=== PATIENT | female | born 1990 | race Caucasian/White ===

== ENCOUNTER → 2016-11-15 | Outpatient (CLI) | payer OTHER | END | disposition home or self-care (01) | LOC: C.LAB1850 12:47 | PROVIDERS: ATTEND Physician Assistant | DX: Z11.3 Encounter for screening for infections with a predominantly sexual mode of transmission (principal) ==

== ENCOUNTER → 2017-04-13 | Outpatient (CLI) | payer OTHER | END | disposition home or self-care (01) | LOC: C.PAPS 16:29 | PROVIDERS: ATTEND Physician Assistant | DX: Z12.4 Encounter for screening for malignant neoplasm of cervix (principal) ==

== ENCOUNTER → 2017-04-13 | Outpatient (CLI) | payer OTHER | END | disposition home or self-care (01) | LOC: C.LABSPEC 15:38 | PROVIDERS: ATTEND Physician Assistant | DX: Z01.419 Encounter for gynecological examination (general) (routine) without abnormal findings (principal) ==

== ENCOUNTER → 2017-04-21 | Outpatient (CLI) | payer OTHER ==
[2017-04-21 13:49] LABS: HEP C IGG 13 YRS+OLDER_RFLX NEG (NEG)
== END | disposition home or self-care (01) ==
LOC: C.LAB1850 11:42
PROVIDERS: ATTEND Physician Assistant
DX: Z11.3 Encounter for screening for infections with a predominantly sexual mode of transmission (principal)

== ENCOUNTER → 2017-05-08 | Outpatient (CLI) | payer OTHER | END | disposition home or self-care (01) | LOC: C.LABSPEC 17:19 | PROVIDERS: ATTEND Physician Assistant | DX: A74.9 Chlamydial infection, unspecified (principal) ==

== ENCOUNTER → 2017-07-25 | Outpatient (CLI) | payer OTHER | END | disposition home or self-care (01) | LOC: C.LABSPEC 17:17 | PROVIDERS: ATTEND Physician Assistant | DX: A74.9 Chlamydial infection, unspecified (principal) ==

== ENCOUNTER 2021-08-26 05:29 | Inpatient (IN) ==
--- NOTE | 2021-08-23 13:18 | Anesthesiology Consultation ---
Date of Service August 23, 2021 Assessment & Plan (1) Encounter for pre-operative examination: - COVID screening: Per assessment on 08/23: No known COVID-19 positive contacts or current COVID-19 related symptoms. Travel screen negative. Patient vaccinated. Surgeon arranging preop COVID testing. Awaiting results. - Anti-Prosperity antibody: titers been closely monitored throughout . 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 Pt has produced antibodies against this and be monitored throughout the related to this. Pt will deliver at 36.5 weeks and receive 2 steroid shots for baby lung development (first short 08/23/21 PM, second shot 08/24/21). Per Esvin at blood bank, they are aware. 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 History Surgery Operation Date: 08/26/21 08:50 Proposed Procedures p Section (Delivery of Baby Through Abdominal Incision) - Tiffany Fuentes DO Height/Weight Height: 5 ft 6 in Weight: 90.718 kg Allergies Allergy/AdvReac Type Severity Reaction Status Date / Time scallops Allergy Mild SHOWN PER Verified 08/23/21 12:33 ALLERGY TEST dog dander Allergy Unknown ITCHY Verified 08/23/21 12:33 EYES, SNEEZING house dust mite Allergy Unknown ITCHY Verified 08/23/21 12:33 EYES, SNEEZING No Known Drug Allergies Allergy Verified 08/23/21 12:33 milk AdvReac Mild MILD GI Verified 08/23/21 12:33 DISTURBANCE environmental Allergy Unknown ITCHY Uncoded 08/23/21 12:33 EYES, SNEEZING Medications Home Medications Medication Instructions Recorded Confirmed Last Taken Steroid Injection 1 dose UD PRN 08/23/21 08/23/21 Unknown loratadine 10 mg tablet (Claritin) 10 mg PO QAM 08/23/21 08/23/21 Unknown prenat.vits,mark,ibr-tvxo-lfebf 1 tab PO QAM 08/23/21 08/23/21 Unknown Past Medical History Medical History (Updated 08/23/21 @ 13:15 by Mallorie Morales) ADHD No current meds 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 Pt has produced antibodies against this and be monitored throughout the related to this. Pt will deliver at 36.5 weeks and receive 2 steroid shots for baby lung development (first short 08/23/21 PM, second shot 08/24/21) Past Family History Family History Grandmother Colorectal cancer Father No problems noted. Family/Other Myocardial infarction Environmental allergies Sinusitis Mother Hypothyroidism Grandmother (Paternal) Lung cancer Sister Ovarian cancer Denies family history of Breast cancer Uterine cancer Past Surgical History Surgical History (Updated 08/23/21 @ 13:11 by Mallorie Morales) H/O nasal septoplasty S/P section S/P tooth extraction wisdom teeth Social History Smoking Status: Former smoker tobacco type: cigarettes Do You Dip or Chew Tobacco: No Smoking End Date: 8-9 YR AGO Hx Alcohol Use: No Hx Substance Use: No substance use type: does not use
--- NOTE | 2021-08-25 17:49 | History & Physical Report ---
Date of Service August 25, 2021 Assessment & Plan (1) Previous delivery affecting , antepartum: Plan: Plan for repeat section, revision of skin incision. Does NOT plan for tubal at this time (is planning partner vasectomy). Reviewed consent in detail. Questions answered. She would like this to go through prior pfannenstiel incision, with revision of the vertical portion of incision. We discussed that will try to do this during the surgery, and will use yunior. Discussed that there is a possibility that this will not heal well again and that she might keloid again. She understands. Discussed that there is risk of scarring that might cause difficulty with delivery of baby and possibly increased risk of damage to internal organs. She would like to keep the placenta - will defer to hospital policies regarding this History of Present Illness Chief Complaint: scheduled repeat section Primary Care Provider: [facility] PCP 31yo with [facility] 09/20/21. Scheduled for repeat section. with the following: COVID positive PCR on 05/07 (s/s started on 05/06) Prior Section affecting *I spoke with Dr. Escobar today in labor and delivery we carefully reviewed the case she recalled that the uterus was definitely not cut in a T-incision we reviewed the note carefully together and she said she did make a vertical incision on the skin but there was no vertical incision on the uterus that the nipple laceration was done simply because the baby's arm was out and she had to get more room on the abdomen and this is where the incision was made - DR. Jean *Repeat C/S *Delivery 36-37 weeks C/S WITH LIA ON 08/26/21 COVID TEST ON 08/24/21 Short interval within 1 year. Anti K antibody *Fob K antigen positive *MFM consult *titer Q 2 wks (per MFM conversation on 04/13/21) GBS positive in urine *Treat in labor Allergies Allergy/AdvReac Type Severity Reaction Status Date / Time scallops Allergy Mild SHOWN PER Verified 08/25/21 15:58 ALLERGY TEST dog dander Allergy Unknown ITCHY Verified 08/25/21 15:58 EYES, SNEEZING house dust mite Allergy Unknown ITCHY Verified 08/25/21 15:58 EYES, SNEEZING No Known Drug Allergies Allergy Verified 08/25/21 15:58 milk AdvReac Mild MILD GI Verified 08/25/21 15:58 DISTURBANCE environmental Allergy Unknown ITCHY Uncoded 08/23/21 12:33 EYES, SNEEZING Home Medications Medication Instructions Recorded Confirmed Type Steroid Injection 1 dose UD PRN 08/23/21 08/25/21 History loratadine 10 mg tablet (Claritin) 10 mg PO QAM 08/23/21 08/25/21 History prenat.vits,mark,kyo-aqtk-tntpc 1 tab PO QAM 08/23/21 08/25/21 History Patient History Medical History (Updated 08/23/21 @ 13:15 by Mallorie Morales) ADHD No current meds 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 Pt has produced antibodies against this and be monitored throughout the related to this. Pt will deliver at 36.5 weeks and receive 2 steroid shots for baby lung development (first short 08/23/21 PM, second shot 08/24/21) Surgical History (Updated 08/23/21 @ 13:11 by Mallorie Morales) H/O nasal septoplasty S/P section S/P tooth extraction wisdom teeth Family History Grandmother Colorectal cancer Father No problems noted. 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 Beliefs That Will Affect Care: None marital status: marital status details: Arsenio Puente (39) [phone] Current Living Situation: Spouse and Family Current Living Situation Comment: lives with spouse, 2 children, dog, cat-spoue changing litter current occupational status: employed 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 No s/s chorio or abruption. Skin: no rashes, warm and dry Psychiatric: A+Ox3, euthymic affect Coding Level of Care Code None Diagnoses Previous delivery affecting , antepartum O34.219
[2021-08-26] MEDS ORDERED: LACTATED RINGER'S 1,000 ML IV SCH ×2 (05:45→06:45)
[2021-08-26] MEDS ORDERED: ceFAZolin 2000MG 2,000 MG/15 ML SYR IV SCH (06:00)
[2021-08-26] MEDS ORDERED: CITRIC ACID/SODIUM CITRATE 15 ML UDC PO SCH (06:00)
[2021-08-26 06:12] LABS: Hematocrit (blood only) 34.3 % (37-47); Hemoglobin 11.4 g/dL (12.0-16.0); Mean Corpuscular Hgb Conc 33.2 g/dL (32-36); Mean Corpuscular Volume 93.2 fL (80-100); Mean Platelet Volume 10.7 fL (7.4-10.4); Platelet Count 240 K/uL (130-400); RDW Coefficient of Variation 12.8 % (11.5-14.5); RDW Standard Deviation 43.4 fL (36.4-46.3); Red Blood Count 3.68 M/uL (4.2-5.4); White Blood Count 7.73 K/uL (4.8-10.8)
[2021-08-26 06:50] LABS: Basophils # (auto) 0.01 K/uL (0-0.2); Basophils % (auto) 0.1 %; Eosinophils # (auto) 0.05 K/uL (0-0.5); Eosinophils % (auto) 0.6 %; Immature Granulocytes # (auto) 0.03 K/uL (0.00-0.02); Immature Granulocytes % (auto) 0.4 %; Lymphocytes # (auto) 3.03 K/uL (1.2-3.4); Lymphocytes % (auto) 39.2 %; Monocytes # (auto) 0.81 K/uL (0.11-0.59); Monocytes % (auto) 10.5 %; Neutrophils % (auto) 49.2 %
[2021-08-26] MEDS ORDERED: MoRPHine SULFATE PF 1 MG/ML 10 ML AMP/VIAL ONE (06:57)
[2021-08-26] MEDS ORDERED: OXYTOCIN 10 UNITS/ML 10ML VIAL ONE (06:57)
[2021-08-26] MEDS ORDERED: fentaNYL citrate 100 MCG/2 ML VIAL ONE (06:57)
[2021-08-26] MEDS ORDERED: ONDANSETRON INJ 2 MG/ML 2 ML VIAL ONE (06:57)
--- NOTE | 2021-08-26 07:35 | History & Physical Bridge Note ---
Date of Service August 26, 2021 History & Physical Bridge Note I have examined the patient, reviewed the History & Physical and in the interval since the performance of the History & Physical I have noted the following changes of clinical significance: no changes noted
[2021-08-26] MEDS ORDERED: MoRPHine SULFATE PF 1 MG/ML 10 ML AMP/VIAL INT SPINAL ONE (07:59)
[2021-08-26] MEDS ORDERED: NALOXONE HCL 1 MG in SODIUM CHLORIDE 0.9% 1000ML 1,000 ML IV PRN (07:59)
[2021-08-26] MEDS ORDERED: LACTATED RINGER'S 500 ML IV PRN (07:59)
[2021-08-26] MEDS ORDERED: ONDANSETRON INJ 2 MG/ML 2 ML VIAL IV PRN ×2 (07:59→09:26)
[2021-08-26] MEDS ORDERED: MoRPHine SULFATE 2 MG/ML CARP IV PRN (07:59)
[2021-08-26] MEDS ORDERED: NALOXONE HCL 0.4 MG/1 ML VIAL/CARP IV PRN (07:59)
[2021-08-26] MEDS ORDERED: NALBUPHINE HCL INJ 10 MG/ML AMP IV PRN (07:59)
[2021-08-26] MEDS ORDERED: ePHEDrine sulfate 50 MG/ML AMP IV PRN (07:59)
[2021-08-26] MEDS ORDERED: diphenhydrAMINE 50 MG/ML VIAL IV PRN (07:59)
[2021-08-26] MEDS ORDERED: NALOXONE HCL 0.08 MG in SYRINGE 1.8 ML IV PRN (07:59)
[2021-08-26] MEDS ORDERED: NO NARCOTICS OR SEDATIVES SCH (08:00)
[2021-08-26] MEDS ORDERED: SODIUM CHLORIDE 0.9% 1000ML 1,000 ML IV SCH (08:00)
[2021-08-26] MEDS ORDERED: DC INTRASPINAL MORPHINE SCH (08:00)
[2021-08-26] MEDS ORDERED: ARISTA ABSORBABLE HEMOSTAT 3GM TOP ONE (08:45)
[2021-08-26] MEDS ORDERED: LIDOCAINE 2%/EPINEPHRINE 1:200,000 20 ML SDV ONE (08:47)
--- NOTE | 2021-08-26 09:10 | Operative Report ---
PG Post Operative Report Pre & Post Diagnosis Operation Date: 08/26/21 07:30 Pre-Op Diagnosis: Repeat Caesarean Section;Prior T Incision;Large Scar Post-Op Diagnosis: Same; Delivery of a live male child at 0807 I identified the patient and participated in the time-out.: Yes Procedure Operation Date: 08/26/21 07:30 Actual Procedures Repeat low transverse Section, Revision of prior Incision - Tiffany Fuentes DO Surgeon Tiffany Fuentes DO Fruit Or Nut Farmworker Jerald Veras MD Estimated Blood Loss 700 Findings Consistent with Post-Op Diagnosis Large T-shaped skin incision. Normal appearing uterus, tubes, ovaries. There is a defect in the right broad ligament, presumably from prior cervical extension. Viable male , Apgars 8/9. Specimens Patient desires to keep placenta - therefore she declines to send to path. Drains gómez clear yellow Anesthesia Type Spinal Complications none Disposition Accompanied Patient To Recovery: Yes Indications 31yo @ 36 3/7, with prior and difficult delivery of baby, with T-incision. Early delivery recommended by MFM due to suspected T-incision of uterus. Patient rec'd 2x betamethasone for lung maturity. Patient desired revision of prior skin incisions. Description of Procedure The patient was seen in her labor and delivery room, risks benefits and alternatives to surgery were reviewed. Informed consent obtained. Questions were answered. She was taken to the operating room, spinal anesthesia was administered. She was then prepared and draped in the usual sterile fashion in the supine position with a leftward tilt. Timeout was confirmed. A Pfannenstiel skin incision was made with a scalpel, removing the prior horizontal incision, and carried through to the underlying layer of fascia. Fascia was nicked at midline, and this incision was extended bilaterally. The superior aspect of the fascial incision was grasped with Marty clamps x2, elevated off the underlying rectus abdominis muscles, and dissected sharply and bluntly. In similar fashion, the inferior aspect of the fascial incision was dissected. The rectus abdominis muscles were , and the peritoneum was entered bluntly digitally. This was extended bilaterally. The bladder flap was taken down carefully using Metzenbaum scissors. Using a new scalpel, a low transverse uterine incision was created. Clear amniotic fluid noted. The infant was delivered from a cephalic presentation. The head delivered, followed by shoulders and body. Spontaneous cry on the field. The cord was doubly clamped and cut, and the was handed off to the waiting assemblyman or woman. A segment was retained for cord gases. Cord blood was obtained. The placenta was delivered spontaneously intact. The uterus was exteriorized, and cleared of all clots and debris. The hysterotomy incision was reapproximated using 0 Vicryl in a running locked stitch. A [id number]-tx-[id number] was used at the right apex due to small subserosal hematoma, this was stable after the figure of eight stitch. A second layer of the same suture was used to imbricate the incision. Posterior uterus was evaluated and normal. The uterus was returned to the abdomen, and gutters were cleared of clots and debris. Excellent hemostasis was observed. The fascial incision was reapproximated using 0 Vicryl in a running stitch. The vertical skin scar was removed with an elliptical incision with a scalpel, and all subcutaneous tissue was reapproximated using 2-0 plain gut in running stitches. The skin was reapproximated using yunior and covered with a bandage. The patient tolerated the procedure well, and will be taken to the recovery area in stable and good condition. I attest to the content of the Intraoperative Record and any orders documented therein. Any exceptions are noted below. OB Procedure Charges 11716
[2021-08-26] MEDS ORDERED: BENZOCAINE 20% AER SPR 82.5 GM CAN EXT PRN (09:26)
[2021-08-26] MEDS ORDERED: HYDROCORTISONE ACETATE 25 MG SUPP PR PRN (09:26)
[2021-08-26] MEDS ORDERED: diphenhydrAMINE Capsule 25 MG CAP PO PRN (09:26)
[2021-08-26] MEDS ORDERED: DIPHTHERIA/TETANUS/PERTUSSIS 0.5 ML SYR/VIAL IM ONE (09:26)
[2021-08-26] MEDS ORDERED: ACETAMINOPHEN 325 MG TAB PO PRN (09:26)
[2021-08-26] MEDS ORDERED: MAGNESIUM HYDROXIDE SUSP 30 ML UDC PO PRN (09:26)
[2021-08-26 09:35] LABS: Base Excess Cord Arterial Bld -1.8 mEq/L (-9-1.8); CO2 Cord Arterial Blood 47 mmHg (39.1-73.5); HCO3 Cord Arterial Blood 24 mmol/L (19.7-28.5); PO2 Cord Arterial Blood 19 mmHg (4.1-31.7); pH Cord Arterial Blood 7.33 (7.1-7.38)
[2021-08-26 09:47] LABS: Base Excess Cord Venous Blood -0.6 mEq/L (-7.7-1.9); Cord Venous Blood HCO3 24 mmol/L (18.4-26.8); Cord Venous Blood PCO2 37 mmHg (30.4-57.2); Cord Venous Blood PO2 34 mmHg (14.1-43.3); Cord Venous Blood pH 7.42 (7.20-7.44); Oxygen Sat Cord Arterial Blood < 60.0 % (<60)
[2021-08-26] MEDS: KETOROLAC 30 MG/ML VIAL IV PRN ×2 (09:55→15:29)
[2021-08-26] MEDS ORDERED: OXYTOCIN 20 UNITS in LACTATED RINGER'S 1,000 ML IV SCH ×2 (10:15→17:15)
--- NOTE | 2021-08-26 11:34 | Anesthesia Procedure Note ---
Date of Service August 26, 2021 Anesthesia Post Epidural Note Vital Signs Vital Signs: Temp Pulse Resp BP Pulse Ox 36.8 C 63 18 114/65 100 08/26/21 05:40 08/26/21 10:20 08/26/21 05:40 08/26/21 10:20 08/26/21 10:17 Pain Intensity Lower Abdomen: Pain Intensity: 4 Notes Mental Status: alert / awake / arousable and participated in evaluation Patient Amnestic to Procedure: No Nausea / Vomiting: adequately controlled Pain: adequately controlled Airway Patency, RR, SpO2: stable & adequate BP & HR: stable & adequate Hydration State: stable & adequate Neuraxial Anesthesia: was administered and sensory block is resolving Anesthetic Complications: no major complications apparent and Pt Satisfied with anesthetic care
[2021-08-26] MEDS: SIMETHICONE 80 MG CHEW PO SCH ×3 (13:19→20:53)
[2021-08-26] MEDS: IBUPROFEN 600 MG TAB PO PRN (20:53)
[2021-08-26] MEDS: DOCUSATE SODIUM 100 MG CAP PO SCH (20:54)
[2021-08-27] MEDS ORDERED: PROMETHAZINE HCL 25 MG in SODIUM CHLORIDE 0.9% 50 ML IV PRN (02:00)
[2021-08-27] MEDS: IBUPROFEN 600 MG TAB PO PRN ×5 (04:49→23:35)
[2021-08-27] MEDS: oxyCODONE/ACETAMINOPHEN 5mg/325mg TAB PO PRN ×5 (04:50→23:34)
--- NOTE | 2021-08-27 06:57 | Obstetrical Progress Note ---
Date of Service August 27, 2021 Assessment & Plan (1) Supervision of normal intrauterine in multigravida: POD#1 doing well. Incision clean/dry/intact. Ambulating, eating/drinking. Urinating normally. Passing gas. . Pain controlled. Abdomen soft/NTTP/nondistended. Bandage removed - yunior in place. Recommend ambulation, PO hydration today. Subjective Ambulation: ambulating normally Voiding: no voiding problems Diet Tolerance:: regular diet Lochia:: Moderate Review of Systems All systems reviewed & are unremarkable except as noted in HPI & below Physical Exam Constitutional WD/WN, vitals as above no acute distress Respiratory normal respiratory effort Cardiovascular Rate/Rhythm: regular rate and regular rhythm Gastrointestinal (Abdomen) Inspection/Auscultation: abdomen normal to inspection; abdomen not distended Percussion/Palpation: abdomen soft Genitourinary OB Exam Abdomen: + fundal height Fundus: + firm; not tender Results & Data ([facility]) Vital Signs (Past 12 Hours) Vital Signs Temp Pulse Resp BP Pulse Ox 08/27/21 03:00 36.7 C 72 18 98/60 L 94 08/27/21 02:00 18 93 08/27/21 01:23 18 95 08/27/21 00:50 18 95 08/26/21 23:40 36.9 C 81 18 117/60 95 08/26/21 22:00 16 93 08/26/21 21:00 16 95 08/26/21 20:08 36.9 C 91 H 16 109/65 97 08/26/21 19:00 16 98
[2021-08-27 07:00] LABS: Basophils # (auto) 0.01 K/uL (0-0.2); Basophils % (auto) 0.1 %; Eosinophils # (auto) 0.19 K/uL (0-0.5); Eosinophils % (auto) 1.8 %; Hematocrit (blood only) 34.4 % (37-47); Immature Granulocytes # (auto) 0.05 K/uL (0.00-0.02); Immature Granulocytes % (auto) 0.5 %; Lymphocytes # (auto) 2.42 K/uL (1.2-3.4); Lymphocytes % (auto) 22.5 %; Mean Corpuscular Hemoglobin 32.8 pg (25-34); Mean Corpuscular Hgb Conc 34.9 g/dL (32-36); Mean Platelet Volume 10.8 fL (7.4-10.4); Monocytes # (auto) 0.99 K/uL (0.11-0.59); Monocytes % (auto) 9.2 %; Neutrophils % (auto) 65.9 %; Platelet Count 234 K/uL (130-400); RDW Coefficient of Variation 12.7 % (11.5-14.5); RDW Standard Deviation 43.3 fL (36.4-46.3); Red Blood Count 3.66 M/uL (4.2-5.4); White Blood Count 10.76 K/uL (4.8-10.8)
[2021-08-27] MEDS: PRENATAL VITAMIN 1 TAB PO SCH (07:42)
[2021-08-27] MEDS: FERROUS SULFATE 325 MG TAB PO SCH (07:42)
[2021-08-27] MEDS: DOCUSATE SODIUM 100 MG CAP PO SCH ×2 (07:43→19:42)
[2021-08-27] MEDS: SIMETHICONE 80 MG CHEW PO SCH ×4 (07:43→19:42)
[2021-08-27] MEDS ORDERED: bisacodyL 5 MG TABEC PO SCH (20:00)
[2021-08-28] MEDS: oxyCODONE/ACETAMINOPHEN 5mg/325mg TAB PO PRN ×2 (05:22→09:59)
[2021-08-28] MEDS: IBUPROFEN 600 MG TAB PO PRN ×2 (05:23→09:57)
[2021-08-28 06:53] LABS: Hematocrit (blood only) 34.5 % (37-47); Hemoglobin 11.3 g/dL (12.0-16.0)
--- NOTE | 2021-08-28 07:18 | Obstetrical Progress Note ---
Date of Service August 28, 2021 Assessment & Plan (1) Supervision of normal intrauterine in multigravida: Postoperative day #2 from section she wishes to go home and this is reasonable incision is healing well she will need yunior out in the office and appointment will be made for her next week Subjective Ambulation: ambulating normally Voiding: no voiding problems Passing Gas:: Yes Diet Tolerance:: regular diet Lochia:: Small Results & Data ([facility]) Vital Signs (Past 12 Hours) Vital Signs Temp Pulse Resp BP Pulse Ox 08/27/21 23:30 97.5 F L 67 17 109/67 97 08/27/21 19:45 97.7 F 73 16 120/69 98
[2021-08-28] MEDS ORDERED: bisacodyL 10 MG SUPP PR PRN (09:16)
[2021-08-28] MEDS: SIMETHICONE 80 MG CHEW PO SCH (09:51)
[2021-08-28] MEDS: FERROUS SULFATE 325 MG TAB PO SCH (09:52)
[2021-08-28] MEDS: PRENATAL VITAMIN 1 TAB PO SCH (09:52)
[2021-08-28] MEDS: DOCUSATE SODIUM 100 MG CAP PO SCH (09:52)
== END 2021-08-28 11:30 | disposition home or self-care (01) | DRG 788 ==
LOC: 4S1 05:29 → EDSTATUS 08:50 → 4E2 11:00

== ENCOUNTER 2024-01-24 07:30 | Inpatient (IN) ==
--- NOTE | 2024-01-31 15:30 | Anesthesiology Consultation ---
Date of Service January 31, 2024 Assessment & Plan (1) Encounter for pre-operative examination: Chart Review Chart Review: Acceptable Risk for Surgery and Patient NOT seen in Pre Admission Testing Infectious Disease screening: Per PAT nursing assessment on 01/31/24, No known infectious disease contacts in past 10 days or current infectious disease symptoms. No recent travel outside the country. History Surgery Operation Date: 02/07/24 07:30 Proposed Procedures p Section (Delivery of Baby Through Abdominal Incision) - Belkis Jean MD, FACOG s With Bilateral Tubal Ligation - Belkis Jean MD, FACOG Height/Weight Height: 5 ft 6 in Weight: 86.183 kg Allergies Allergy/AdvReac Type Severity Reaction Status Date / Time nickel Allergy Rash Verified 01/31/24 13:36 No Known Drug Allergies Allergy Verified 01/31/24 13:26 Medications Home Medications Medication Instructions Recorded Confirmed Last Taken prenat.vits,mark,pap-nxzq-yconf 1 tab PO QAM 08/23/21 01/31/24 Unknown Dha 1 cap PO QAM 01/31/24 01/31/24 Unknown Past Medical History Medical History (Updated 01/31/24 @ 15:28 by Melaine Herbert PA-C) ADHD No current meds Anxiety Genetic carrier FOB is a [place] Gene carrier; per OB records, pt 'negative for [place] antigen' History of anemia no recent issues History of chicken pox History of COVID-19 mid 12/2023, tested positive, pt had similar symptoms; still has lingering cough Past Family History Family History Grandmother Colorectal cancer maternal great grandmother Father No problems noted. Family/Other Myocardial infarction Environmental allergies Sinusitis Mother Hypothyroidism Grandmother (Paternal) Lung cancer Sister Ovarian cancer, Onset Age: 34 negative genetic screen Denies family history of Breast cancer Uterine cancer Past Surgical History Surgical History (Updated 01/31/24 @ 15:27 by Melanie Herbert PA-C) H/O nasal septoplasty S/P section x2; most recent 08/26/21: SAB x 1 attempt 'easy' S/P tooth extraction wisdom teeth Social History Smoking Status: Former smoker tobacco type: cigarettes Do You Dip or Chew Tobacco: No Smoking End Date: 2013 Hx Alcohol Use: Yes alcohol intake frequency: holidays/special occasions only Hx Substance Use: No substance use type: does not use
[2024-02-07] MEDS ORDERED: OXYTOCIN 30 UNITS/NSS 30 UNITS/500 ML BAG IV PRN (05:55)
[2024-02-07] MEDS ORDERED: LIDOCAINE 1% LOCAL 20 ML VIAL INFIL PRN (05:55)
[2024-02-07] MEDS ORDERED: LACTATED RINGER'S 1,000 ML IV SCH ×2 (06:00→09:04)
[2024-02-07] MEDS ORDERED: CITRIC ACID/SODIUM CITRATE 15 ML UDC PO SCH (06:00)
[2024-02-07] MEDS ORDERED: ACETAMINOPHEN 500 MG TAB PO SCH (06:00)
[2024-02-07] MEDS: ACETAMINOPHEN 500 MG TAB PO SCH ×2 (06:02→06:53)
[2024-02-07 06:34] LABS: Hematocrit (blood only) 32.3 % (37.0-47.0); Hemoglobin 11.1 g/dl (12.0-16.0); Mean Corpuscular Hemoglobin 31.7 pg (25.0-34.0); Mean Corpuscular Hgb Conc 34.4 g/dL (32.0-36.0); Mean Corpuscular Volume 92.3 fL (80.0-100.0); Mean Platelet Volume 11.7 fL (9.4-12.4); Platelet Count 212 K/uL (130-400); RDW Coefficient of Variation 12.1 % (11.5-14.5); RDW Standard Deviation 40.9 fL (36.4-46.3); White Blood Count 8.49 K/ul (4.8-10.8)
[2024-02-07] MEDS: LACTATED RINGER'S 1,000 ML IV SCH (06:55)
[2024-02-07] MEDS ORDERED: MoRPHine SULFATE PF 1 MG/ML 10 ML AMP/VIAL ONE (06:57)
--- NOTE | 2024-02-07 07:12 | History & Physical Report ---
Date of Service February 07, 2024 Assessment & Plan (1) Previous delivery affecting , antepartum: Plan: Repeat section. With bilateral tubal ligation. The patient was counseled to the nature of the procedure including alternatives such as labor. Risks were discussed including bleeding infection injury to bowel bladder ureter vessels and even baby. The risks of internal organ injury were discussed as being higher with prior sections. Deep Vein Thrombosis, pulmonary embolus and breakdown of the incision discussed. Deep vein thrombosis pulmonary embolus hernia and failure of the incision to heal were discussed Patient verbalized understanding of this and was given ample time to ask questions Discussed the timing of 38 or 39 weeks. She strongly prefers 38 weeks due to rapid labors and potential rupture risk. Discussed slight risks of prematurity balanced with risks of waiting 1 more week. Wishes BTL Note we had a lengthy discussion about timing of delivery it does not appear from the original operative note from a different provider at a different hospital that there was true clarity on the T-incision. It sounds like a complicated delivery with possibly the skin was cut in the T-incision but not the uterus but the documentation is unclear. It had been discussed and her high risk group that we could offer a later delivery at 39 weeks and that we could also plan on 38 weeks. Going earlier such as 3637 weeks was advised against by our group at high risk meeting due to the risks of prematurity. Patient has had a prior early her biggest anxiety is that she went rapidly into labor and one of her prior pregnancies and the was challenging as she was progressing quickly she worries the same will happen if she waits 1 more week again I offered to schedule the section at 39 weeks the patient strongly wishes to pursue 38 weeks which is today and understands the risks and benefits including slight prematurity risks Admission and Anticipated Discharge Date Admission Date: February 07, 2024 History of Present Illness Primary Care Provider: Lizbeth Pike MD STACI Calculator Estimated Delivery Date Method Current WG Current Estimate 02/21/24 LMP (Certain) 37w 6d Other Estimates 02/20/24 Ultrasound #1 38w 0d LMP: 05/17/23 : 4 Full term: 3 Premature: 0 Total Number of Induced Abortions: 0 Total Number of Spontaneous Abortions: 0 Ectopics: 0 Multiple births: 0 Number of Living Children: 3 and Delivery Plans Prior x2, no known hx T incision - Repeat at 38- 39wks--desires TL C/S SCHEDULED 02/07/[address] CALDERON AND DR[address] BLAIR BHAKTA AMA Weekly NST's @ 36 weeks FOB Anne Gene Carrier *Ok for unity testing---negative for Alpine antigen Allergies Allergy/AdvReac Type Severity Reaction Status Date / Time nickel Allergy Rash Verified 02/06/24 08:36 No Known Drug Allergies Allergy Verified 02/06/24 08:36 Home Medications Medication Instructions Recorded Confirmed Type prenat.vits,mark,ptb-dplo-kmtix 1 tab PO QAM 08/23/21 02/07/24 History Dha 1 cap PO QAM 01/31/24 02/07/24 History Patient History Medical History History of COVID-19 mid 12/2023, tested positive, pt had similar symptoms; still has lingering cough Anxiety History of anemia no recent issues History of chicken pox Genetic carrier FOB is a [place] Gene carrier; per OB records, pt 'negative for [place] antigen' ADHD No current meds Surgical History S/P section x2; most recent 08/26/21: SAB x 1 attempt 'easy' H/O nasal septoplasty S/P tooth extraction wisdom teeth Family History Grandmother Colorectal cancer maternal great grandmother Father No problems noted. Family/Other Myocardial infarction Environmental allergies Sinusitis Mother Hypothyroidism Grandmother (Paternal) Lung cancer Sister Ovarian cancer, Onset Age: 34 negative genetic screen Denies family history of Breast cancer Uterine cancer Social History Smoking Status: Former smoker Tobacco Type: Cigarettes Smoking End Date: 2013; Second Hand Exposure: Yes (hx growing up); Do You Dip or Chew Tobacco: No; Tobacco Cessation Education Requested by Patient: No Hx Alcohol Use: Yes Hx Substance Use: No Preferred Language: Urdu Communication Ability: Effective Visual Impairment: No Limitations Hearing Ability: Normal 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 Beliefs That Will Affect Care: None marital status: marital status details: Arsenio Puente (41) [phone] Current Living Situation: Spouse and Family Current Living Situation Comment: lives with spouse, 3 children, dog, cat- spouse changing litter current occupational status: employed 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 Other Information That Helps Us Care for You: No Feels Safe at Home: Yes Safety Concerns: Feels Safe At This Time Diet: regular Dental Care, Regularly: Yes Physical Activity Frequency Comment: Reguarly Seatbelt Use: always Assistive Devices: None Physical Exam Constitutional: WD/WN, vitals as above well developed and well nourished Respiratory: normal respiratory effort, lungs clear to auscultation normal respiratory effort Cardiovascular: RRR, no murmur, no edema Gastrointestinal (Abdomen): normal bowel sounds, soft, nontender, no hepatosplenomegaly Results & Data Vital Signs (Past 12 Hours) Vital Signs Temp Pulse Resp BP 02/07/24 06:26 69 109/60 02/07/24 06:00 98.1 F 18 Code Status & VTE Plan VTE Prophylaxis Plan VTE Prophylaxis will be ordered: No Reason for no VTE drug order: Treatment not indicated Coding Level of Care Code None Diagnoses Previous delivery affecting , antepartum O34.219
[2024-02-07] MEDS: ceFAZolin 2,000 MG in SYRINGE 0 ML IV SCH (07:37)
[2024-02-07] MEDS: CITRIC ACID/SODIUM CITRATE 15 ML UDC PO SCH (07:37)
[2024-02-07] MEDS ORDERED: ONDANSETRON INJ 2 MG/ML 2 ML VIAL ONE (08:03)
[2024-02-07] MEDS ORDERED: METOCLOPRAMIDE HCL INJ 5 MG/ML 2 ML VIAL ONE (08:03)
[2024-02-07] MEDS ORDERED: DEXAMETHASONE SOD INJ 4 MG/ML VIAL ONE (08:06)
[2024-02-07] MEDS ORDERED: OXYTOCIN 10 UNITS/ML VIAL ONE (08:07)
[2024-02-07] MEDS ORDERED: PHENYLEPHRINE HCL 25 MG/250 ML NSS IV ONE (08:07)
[2024-02-07] MEDS ORDERED: ePHEDrine sulfate 50 MG/5 ML SYR ONE (08:07)
[2024-02-07] MEDS ORDERED: ONDANSETRON INJ 2 MG/ML 2 ML VIAL IV PRN (08:10)
[2024-02-07] MEDS ORDERED: ePHEDrine sulfate 50 MG/ML AMP IV PRN (08:10)
[2024-02-07] MEDS ORDERED: MoRPHine SULFATE PF 1 MG/ML 10 ML AMP/VIAL INT SPINAL ONE (08:10)
[2024-02-07] MEDS ORDERED: NALBUPHINE HCL INJ 10 MG/ML AMP IV PRN (08:10)
[2024-02-07] MEDS ORDERED: oxyCODONE HCL IR 5 MG TAB (IMMEDIATE RELEASE) PO PRN (08:10)
[2024-02-07] MEDS ORDERED: NALOXONE HCL 0.08 MG in SYRINGE 1.8 ML IV PRN (08:10)
[2024-02-07] MEDS ORDERED: NALOXONE HCL 0.4 MG/1 ML VIAL/CARP IV PRN (08:10)
[2024-02-07] MEDS ORDERED: diphenhydrAMINE 50 MG/ML VIAL IV PRN (08:10)
[2024-02-07] MEDS ORDERED: MoRPHine SULFATE 2 MG/ML CARP IV PRN (08:10)
[2024-02-07] MEDS ORDERED: NALOXONE HCL 1 MG in SODIUM CHLORIDE 0.9% 1,000 ML IV PRN (08:10)
[2024-02-07] MEDS ORDERED: PROMETHAZINE 6.25 MG/50.25 ML BAG IV PRN (08:10)
[2024-02-07] MEDS ORDERED: DC INTRASPINAL MORPHINE SCH (08:15)
[2024-02-07] MEDS ORDERED: NO NARCOTICS OR SEDATIVES SCH (08:15)
--- NOTE | 2024-02-07 08:58 | Operative Report ---
Post Operative Report Pre & Post Diagnosis Operation Date: 02/07/24 07:30 <No data on this case meets the specified criteria> Repeat section request for sterilization I identified the patient and participated in the time-out.: Yes Procedure Operation Date: 02/07/24 07:30 <No data on this case meets the specified criteria> Low transverse section and bilateral tubal ligation by salpingectomy Surgeon Belkis Jean MD, FACOG Vehicle Safety Inspector Dr. Goode Quantitative Blood Loss (QBL) 384 Findings Consistent with Post-Op Diagnosis Specimens bilateral fallopian tubes and cord blood Drains [place] Description of Procedure Regional anesthetic had been given by anesthesia patient was prepped and draped with a leftward tilt preoperative antibiotics had been given in appropriate timing by anesthesiology. Once the prep was allowed to fully dry timeout was performed. Pickups with teeth were used to test the incision area was found to be adequate for incision as the patient did not feel sharp pain. Scalpel was used to make a Pfannenstiel incision on the lower abdomen. We then cut through the subcutaneous fat down to the level of the anterior rectus sheath fascia this was cut in the midline and then extended laterally with the curved Garcia scissors. At this stage we then placed 2 Marty clamps on the anterior aspect of the fascia. Using the curved Garcia's we are able to dissect the fascia superiorly away from the rectus muscles. Care was taken to maintain hemostasis. Marty clamps were then placed to the inferior aspect of the anterior sheath of the fascia. Fascia was then dissected away from the rectus muscles inferiorly towards the pubic bone. A Marty was then placed in the midline both inferiorly and superiorly. This was to allow exposure by retraction rectus muscles were in the midline with were then able to cut through the peritoneum and then enter the peritoneal cavity. Opening was enlarged to allow exposure of the peritoneal cavity both superiorly and inferiorly. Once adequate space was obtained a bladder retractor was placed to expose the lower segment Metzenbaums were used to dissect the bladder flap inferiorly away from the uterus. This was done sharply bladder retractor was then repositioned to expose the lower segment of the uterus Fresh scalpel was used to make a low transverse incision on the uterus. Uterus was then entered bluntly with the operators finger, membranes ruptured and the opening was enlarged using the operators fingers bluntly pulling superiorly and inferiorly to allow exposure. Baby was delivered by first flexion of the head elevation of the head out of the pelvis and then pressure by the instructional assistant on the maternal abdomen. Baby's head was then delivered mouth and then nares were suctioned and then using gentle traction the baby was fully delivered. Live vigorous . Fluid was clear cord clamped and cut cord gases obtained cord blood obtained baby handed to pediatrics. Placenta removed was removed with traction we ensure the entire placenta was removed with a moist lap sponge into the uterus Uterus was then exteriorized. IV Pitocin had been started by anesthesia tone improved there were no extensions the uterus was then closed using 0 Monocryl in a 2 layer closure the first layer closed in a running locked fashion from left to right and then a second closure from left to right in a running nonlocked fashion. Patient had requested tubal ligation in the first the right tube was identified and elevated with a [place] using the LigaSure I was able to coagulate and cut the mesosalpinx attachments and then the tube was transected near the entry into the uterus hemostasis was excellent this exact same process was repeated on the left side. At this stage hemostasis was excellent. Uterus was placed back in the peritoneal cavity with suction irrigation out and inspection of the uterus at this stage revealed excellent hemostasis. There was a small lack of hemostasis noted on the right aspect of the incision a [id number] suture of 0 Monocryl improved hemostasis we also applied pro clot to the area at this stage hemostasis was excellent Retractors were removed urine color was clear at this stage of the case we inspected the rectus muscles they were hemostatic fascia was closed with 0 Vicryl subcutaneous fat was irrigated and closed with 3-0 Vicryl skin closed with 4-0 subcuticular Monocryl urine was clear at the end the procedure I attest to the content of the Intraoperative Record and any orders documented therein. Any exceptions are noted below. OB Procedure Charges [id number] Add on Tubal for C/S
[2024-02-07] MEDS ORDERED: HYDROCORTISONE ACETATE 25 MG SUPP PR PRN (09:04)
[2024-02-07] MEDS ORDERED: MAGNESIUM HYDROXIDE SUSP 30 ML UDC PO PRN (09:04)
[2024-02-07] MEDS ORDERED: diphenhydrAMINE Capsule 25 MG CAP PO PRN (09:04)
[2024-02-07] MEDS ORDERED: PROMETHAZINE 12.5 MG/50.5 ML BAG IV PRN (09:04)
[2024-02-07] MEDS ORDERED: BENZOCAINE 20% SPRY 85 APPLN/85 GM CAN EXT PRN (09:04)
[2024-02-07] MEDS ORDERED: CALCIUM CARBONATE 500 MG CHEWABLE TAB PO PRN (09:04)
[2024-02-07] MEDS ORDERED: SENNA 8.6 MG TAB PO PRN (09:04)
[2024-02-07] MEDS ORDERED: OXYTOCIN 20 UNITS/LR 1,000 ML IV SCH (09:04)
[2024-02-07] MEDS: KETOROLAC 30 MG/ML VIAL IV SCH (09:27)
[2024-02-07] MEDS: DIPHTHER/TETAN/PERTUS Vaccine (Tdap, Adol/Adult) 0.5mL IM ONE (12:20)
[2024-02-07] MEDS: OXYTOCIN 20 UNITS/LR 1,002 ML IV SCH (12:34)
--- NOTE | 2024-02-07 12:57 | Anesthesiology Progress Note ---
Date of Service February 07, 2024 Anesthesia Post Procedure Vital Signs Vital Signs: Temp Pulse Resp BP Pulse Ox 02/07/24 11:07 36.2 C L 20 02/07/24 11:07 61 103/53 L 02/07/24 11:06 85 81 L 02/07/24 11:04 77 100 02/07/24 10:59 71 95 02/07/24 10:57 71 99/51 L 02/07/24 10:54 67 99 02/07/24 10:53 79 93 02/07/24 10:49 75 98 02/07/24 10:47 65 103/55 L 02/07/24 10:44 68 99 02/07/24 10:39 73 98 02/07/24 10:37 20 02/07/24 10:37 71 106/56 L 02/07/24 10:34 65 99 02/07/24 10:33 78 94 02/07/24 10:29 68 99 02/07/24 10:27 73 101/55 L 02/07/24 10:24 69 98 02/07/24 10:19 72 96 02/07/24 10:18 70 93 02/07/24 10:17 66 103/57 L 02/07/24 10:14 69 98 02/07/24 10:09 77 100 02/07/24 10:07 20 02/07/24 10:07 76 107/58 L 02/07/24 10:04 78 100 02/07/24 09:59 70 100 02/07/24 09:57 20 02/07/24 09:57 65 111/60 02/07/24 09:54 80 99 02/07/24 09:49 62 100 02/07/24 09:47 20 02/07/24 09:47 66 100/52 L 02/07/24 09:44 73 99 02/07/24 09:39 81 100 02/07/24 09:38 97 H 112/56 L 02/07/24 09:37 20 02/07/24 09:34 62 98 02/07/24 09:29 65 98 02/07/24 09:27 20 02/07/24 09:27 76 103/55 L 02/07/24 09:24 69 99 02/07/24 09:19 75 98 02/07/24 09:17 20 02/07/24 09:17 77 110/57 L 02/07/24 09:14 71 100 02/07/24 09:09 66 100 02/07/24 09:07 36.3 C L 20 02/07/24 09:07 62 110/53 L 02/07/24 09:04 75 88 L 02/07/24 08:59 73 100 02/07/24 08:56 65 118/56 L 02/07/24 06:26 69 109/60 02/07/24 06:00 36.7 C 18 Transfer of Care Handoff Completed per policy Notes Mental Status: alert / awake / arousable Patient Amnestic to Procedure: Yes Nausea / Vomiting: adequately controlled Pain: adequately controlled Airway Patency, RR, SpO2: stable & adequate BP & HR: stable & adequate Hydration State: stable & adequate Neuraxial Anesthesia: was administered and sensory block is resolving Anesthetic Complications: no major complications apparent
[2024-02-07] MEDS: SIMETHICONE 80 MG CHEW PO SCH (14:05)
[2024-02-07] MEDS: ACETAMINOPHEN 325 MG TAB PO SCH (15:16)
[2024-02-07] MEDS: DOCUSATE SODIUM 100 MG CAP PO SCH (21:12)
[2024-02-08] MEDS ORDERED: diphenhydrAMINE 50 MG/ML VIAL IV PRN (02:11)
[2024-02-08] MEDS ORDERED: HYDROmorphone INJ 0.5 MG/0.5 ML SYR IV PRN (02:11)
[2024-02-08] MEDS ORDERED: ONDANSETRON INJ 2 MG/ML 2 ML VIAL IV PRN (02:11)
[2024-02-08 06:39] LABS: Basophils # (auto) 0.01 K/uL (0.00-0.20); Basophils % (auto) 0.1 %; Eosinophils # (auto) 0.06 K/uL (0.00-0.50); Eosinophils % (auto) 0.7 %; Hematocrit (blood only) 29.4 % (37.0-47.0); Immature Granulocytes # (auto) 0.02 K/uL (0.01-0.20); Immature Granulocytes % (auto) 0.2 %; Lymphocytes # (auto) 2.43 K/uL (1.20-3.40); Lymphocytes % (auto) 27.1 %; Mean Corpuscular Hemoglobin 31.9 pg (25.0-34.0); Mean Corpuscular Volume 93.9 fL (80.0-100.0); Mean Platelet Volume 11.5 fL (9.4-12.4); Monocytes # (auto) 0.64 K/uL (0.11-0.59); Monocytes % (auto) 7.1 %; Neutrophils % (auto) 64.8 %; Platelet Count 188 K/uL (130-400); RDW Coefficient of Variation 12.2 % (11.5-14.5); RDW Standard Deviation 41.9 fL (36.4-46.3); Red Blood Count 3.13 M/uL (4.20-5.40); White Blood Count 8.96 K/ul (4.8-10.8)
--- NOTE | 2024-02-08 07:15 | Obstetrical Progress Note ---
Date of Service February 08, 2024 Assessment & Plan (1) Previous delivery affecting , antepartum: Postoperative day note #1 from routine care and hemoglobin stable patient stable continue current care Subjective Ambulation: ambulating normally Voiding: no voiding problems Passing Gas:: Yes Diet Tolerance:: regular diet Lochia:: Small Physical Exam Constitutional WD/WN, vitals as above well developed and well nourished Respiratory normal respiratory effort, lungs clear to auscultation normal respiratory effort Cardiovascular RRR, no murmur, no edema Gastrointestinal (Abdomen) normal bowel sounds, soft, nontender, no hepatosplenomegaly Results & Data Vital Signs (Past 12 Hours) Vital Signs Temp Pulse Resp BP Pulse Ox O2 Del Method 02/08/24 03:25 97.5 F L 64 18 99/61 L 99 Room Air 02/08/24 00:00 97.9 F 84 16 96/56 L 99 Room Air 02/07/24 19:30 97.7 F 66 16 112/74 99 Room Air
[2024-02-08] MEDS: PRENATAL VITAMIN 1 TAB PO SCH (08:16)
[2024-02-08] MEDS: FERROUS SULFATE 325 MG TAB PO SCH (08:16)
[2024-02-08] MEDS: IBUPROFEN 600 MG TAB PO SCH (08:43)
[2024-02-08] MEDS ORDERED: KETOROLAC 30 MG/ML VIAL IV PRN (08:51)
[2024-02-08] MEDS: oxyCODONE HCL IR 5 MG TAB (IMMEDIATE RELEASE) PO PRN (11:30)
[2024-02-08 19:18] VITALS: RESP 16
[2024-02-08] MEDS: bisacodyL 5 MG TABEC PO SCH (19:45)
[2024-02-09 06:58] LABS: Hematocrit (blood only) 31.7 % (37.0-47.0); Hemoglobin 10.2 g/dl (12.0-16.0)
--- NOTE | 2024-02-09 07:55 | Obstetrical Progress Note ---
Date of Service February 09, 2024 Assessment & Plan (1) Elderly multigravida: POD#2 doing well. Incision CDI, abdomen soft. DC home today, reviewed instructions. Followup 6w PP in office. Rx Oxycodone sent to [facility]. Subjective Ambulation: ambulating normally Voiding: no voiding problems Diet Tolerance:: regular diet Lochia:: Moderate Review of Systems All systems reviewed & are unremarkable except as noted in HPI & below Physical Exam Constitutional WD/WN, vitals as above no acute distress Respiratory normal respiratory effort Cardiovascular Rate/Rhythm: regular rate and regular rhythm Gastrointestinal (Abdomen) Inspection/Auscultation: abdomen normal to inspection; abdomen not distended Percussion/Palpation: abdomen soft Genitourinary OB Exam Abdomen: + fundal height Fundus: + firm; not tender Results & Data Vital Signs (Past 12 Hours) Vital Signs Temp Pulse Resp BP Pulse Ox O2 Del Method 02/09/24 02:59 36.5 C 88 16 113/72 99 Room Air 02/08/24 23:35 36.3 C L 64 16 104/64 98 Room Air
[2024-02-09 08:20] VITALS: BP 101/66; TEMP 97.3; O2SAT 100
[2024-02-09] MEDS ORDERED: bisacodyL 10 MG SUPP PR PRN (08:51)
[2024-02-09] MEDS: IBUPROFEN 600 MG TAB PO PRN (09:48)
[2024-02-09 10:00] VITALS: PULSE 88
[2024-02-09] MEDS ORDERED: ACETAMINOPHEN 325 MG TAB PO PRN (14:51)
== END 2024-02-09 10:50 | disposition home or self-care (01) | DRG 785 ==
LOC: EDSTATUS 07:30 → 4S1 02-07 05:34 → 4E2 02-07 12:21
PROC: M.PPTLD (2024-02-07 07:30)